=== PATIENT | male | born 1975 | race Caucasian/White ===

== ENCOUNTER 2019-04-05 17:45 | Emergency (ER) | payer SELFPAY ==
[~2019-04-05] VITALS: Ht 167.6 cm; Wt 80.5 kg
[2019-04-05 17:48] VITALS: BP 139/80; PULSE 86; RESP 18; Ht 167.6 cm; Wt 80.5 kg
--- NOTE | 2019-04-05 19:02 | ERD ---
ER Documentation Chief Complaint Chief Complaint back pain x 2 days HPI 43-year-old male, presents the emergency department, complaining of 2 days with painless lump in the perianal area. The patient denies rectal bleeding, no abdominal pain, no history of previous episodes. The patient denies history of constipation but reports prolonged time sitting in the toilet. ROS All systems reviewed and are negative except as per history of present illness. Medications Home Meds Active Scripts Ibuprofen* (Motrin*) 400 Mg Tab, 400 MG PO TID PRN for PAIN AND OR ELEVATED TEMP for 7 Days, #20 TAB Prov:SRIDEVI CARDENAS MD 04/05/19 Triamcinolone Acetonide (Triamcinolone Acetonide) 0.5% - 15 Gm Oint..gm., 1 APPLIC TOP BID for 7 Days, #1 TUB Prov:SRIDEVI CARDENAS MD 04/05/19 Allergies Allergies: Coded Allergies: No Known Allergy (Unverified , 04/05/19) PMhx/Soc Medical and Surgical Hx: pt denies Medical Hx Hx Alcohol Use: No Hx Substance Use: No Hx Tobacco Use: No Smoking Status: Never smoker FmHx Family History: No diabetes, No coronary disease Physical Exam Vitals Vital Signs Date Temp Pulse Resp B/P (MAP) Pulse Ox O2 O2 Flow FiO2 Time Delivery Rate 04/05/19 98.5 86 18 139/80 97 17:48 (99) Physical Exam Const: No acute distress Head: Atraumatic Eyes: Normal Conjunctiva ENT: Normal External Ears, Nose and Mouth. Neck: Full range of motion. No meningismus. Resp: Clear to auscultation bilaterally Cardio: Regular rate and rhythm, no murmurs Abd: Soft, non tender, non distended. Normal bowel sounds Rectal: 1 cm external hemorrhoid without evidence of thrombosis. Normal sphincter. Skin: No petechiae or rashes Back: No midline or flank tenderness Ext: No cyanosis, or edema Neur: Awake and alert Psych: Normal Mood and Affect Procedures/MDM Differential diagnosis include but not limited to: Internal hemorrhoid, external hemorrhoid, skin tag, Perianal abscess, perirectal abscess, pilonidal cyst, fecal impaction. Low suspicion for acute abdomen. Physical examination and clinical presentation consistent most likely with uncomplicated external hemorrhoid. During the ED course the patient remained stable, no new complaints. Treatment options, results and clinical impression discussed with the patient who agrees with management. The patient is stable to be treated outpatient and will be discharged home, some side effects of prescribed medications were reviewed. The patient was instructed to follow up with the primary care provider in the next 48h. If symptoms persist, worsen or new symptoms develop, then patient should return to the ED immediately. Instructions explained and given directly by me to the patient with acknowledgment and demonstrated understanding. Disclaimer: Inadvertent spelling and grammatical errors are likely due to EHR/dictation software use and do not reflect on the overall quality of patient care. Also, please note that the electronic time recorded on this note does not necessarily reflect the actual time of the patient encounter. Departure Diagnosis: Primary Impression: External hemorrhoids without complication Condition: Stable Patient Instructions: Hemorrhoids Additional Instructions: Muchas patience por [facility] para [place] servicio. Esperamos que en [place] visita a la rosemary de emergencia [place] problema medico haya sido solucionado y que se sienta mucho mejor. Para estar seguros que [place] mejoria sigue en proceso, le pedimos el favor de hacer cory peace de seguimiento medico con [place] doctor primario en los proximos 2-4 rose. Lleve con usted estos documentos y las medicinas recetadas. Si liliya sintomas empeoran, NO SE ESPERE, por favor regrese a rosemary de emergencia INMEDIATAMENTE. En giuseppe que usted no tenga un mdico de atencin primaria: Llame al mdico o clnica comunitaria de referencia que aparece abajo cinda las horas de consultorio para hacer cory peace para que le vean. CLINICAS: [facility] [phone] [address] [facility] 159 [phone] [facility] [phone] [place] [id number] [phone] [facility] 232 [phone] [address] [facility] [phone] SRIDEVI GIBBONS MD April 05, 2019 19:02
[2019-04-05] MEDS ORDERED: IBUP-1561 PO (19:08)
[2019-04-05] MEDS ORDERED: TRIA15OI9 TOP (19:08)
== END 2019-04-05 20:29 | disposition home or self-care (01) ==
LOC: FTE 17:45
DX: K64.4 Residual hemorrhoidal skin tags (principal)
CPT/HCPCS: 99284

== ENCOUNTER 2019-04-07 22:18 | Emergency (ER) | payer SELFPAY ==
[~2019-04-07] VITALS: Wt 80.6 kg
[~2019-04-07 22:18] MED LIST: IBUP-1561 PO; TRIA15OI9 TOP
[2019-04-07 22:24] VITALS: BP 138/94; PULSE 77; RESP 18
[2019-04-08] MEDS ORDERED: DOCU-144 PO (01:52)
[2019-04-08] MEDS ORDERED: HYDR25SU23 PR (01:56)
--- NOTE | 2019-04-08 02:09 | ERD ---
ER Documentation Chief Complaint Chief Complaint blood in stool/rectal bleeding x1. hx of hemorrhoid HPI 43-year-old male with no reported past medical history presents with complaint of rectal bleeding. Patient seen in this ED last Wednesday and diagnosed with possible external hemorrhoids. Given Rx for triamcinolone. Now returns as he had a single episode of bright red blood per rectum around 10 PM. No bleeding since that episode. He otherwise is without complaint. Denying chest pain, dizziness, lightheadedness, or any other concerning symptoms. States he does work that often requires heavy straining and heavy lifting. ROS All systems reviewed and are negative except as per history of present illness. Medications Home Meds Active Scripts Hydrocortisone Acetate (Anusol-Hc) 25 Mg Supp.rect, 1 SUPP IN BID PRN for HEMORROID PAIN/ITCHING, #12 SUPP.RECT Prov:GERSON LEBRON PA-C 04/08/19 Docusate Sodium* (Colace*) 100 Mg Capsule, 100 MG PO TID, #30 CAP Prov:GERSON LEBRON PA-C 04/08/19 Ibuprofen* (Motrin*) 400 Mg Tab, 400 MG PO TID PRN for PAIN AND OR ELEVATED TEMP for 7 Days, #20 TAB Prov:SRIDEVI CARDENAS MD 04/05/19 Triamcinolone Acetonide (Triamcinolone Acetonide) 0.5% - 15 Gm Oint..gm., 1 A PPLIC TOP BID for 7 Days, #1 TUB Prov:SRIDEVI CARDENAS MD 04/05/19 Allergies Allergies: Coded Allergies: No Known Allergy (Unverified , 04/05/19) PMhx/Soc Hx Miscellaneous Medical Probl: Yes (hemorrhoids) Hx Alcohol Use: No Hx Substance Use: No Hx Tobacco Use: No Smoking Status: Never smoker FmHx Family History: No diabetes, No coronary disease, No other Physical Exam Vitals Vital Signs Date Temp Pulse Resp B/P (MAP) Pulse Ox O2 O2 Flow FiO2 Time Delivery Rate 04/07/19 97.6 77 18 138/94 96 22:24 (109) Physical Exam I have reviewed the triage vital signs. Const: Well nourished, well developed, appears stated age Eyes: PERRL, no conjunctival injection HENT: NCAT, Neck supple without meningismus CV: RRR, Warm, well-perfused extremities RESP: CTAB, Unlabored respiratory effort GI: soft, non-tender, non-distended, no masses, external anal right-sided nonbleeding small lesion MSK: No gross deformities appreciated Skin: Warm, dry. No rashes Neuro: grossly non focal Psych: Appropriate mood and affect. Procedures/MDM 43-year-old male presents with single episode rectal bleeding. Patient hemodynamically stable. I have low suspicion for acute process warranting further emergent care or work-up. Symptoms likely secondary to external hemorrhoids. We will discharge with Anusol, recommend sitz bath, Colace school softer, establish care with clinic, he may require referral to specialist if symptoms do not improve, strict return precautions explained in detail to patient. DISPOSITION PLAN: We discussed follow up with the patient's primary care doctor within 24 to 48 hours. Patient counseled regarding my diagnostic impression and care plan. Prior to discharge all questions answered. Pt agrees with treatment plan and understands strict return precautions. Precautionary instructions provided including instructions to return to the ER if not improving or for any worsening or changing symptoms or concerns. Disclaimer: Inadvertent spelling and grammatical errors are likely due to EHR/dictation software use and do not reflect on the overall quality of patient care. Also, please note that the electronic time recorded on this note does not necessarily reflect the actual time of the patient encounter. Departure Diagnosis: Primary Impression: Hemorrhoids Condition: Stable Patient Instructions: Hemorrhoids Referrals: [facility] YOU HAVE RECEIVED A MEDICAL SCREENING EXAM AND THE RESULTS INDICATE THAT YOU DO NOT HAVE A CONDITION THAT REQUIRES URGENT TREATMENT IN THE EMERGENCY DEPARTMENT. FURTHER EVALUATION AND TREATMENT OF YOUR CONDITION CAN WAIT UNTIL YOU ARE SEEN IN YOUR DOCTORS OFFICE WITHIN THE NEXT 1-2 DAYS. IT IS YOUR RESPONSIBILITY TO MAKE AN APPOINTMENT FOR FOLOW-UP CARE. IF YOU HAVE A PRIMARY DOCTOR --you should call your primary doctor and schedule an appointment IF YOU DO NOT HAVE A PRIMARY DOCTOR YOU CAN CALL OUR PHYSICIAN REFERRAL HOTLINE AT IF YOU CAN NOT AFFORD TO SEE A PHYSICIAN YOU CAN CHOSE FROM THE FOLLOWING [facility] [address] [facility]. [facility] [address] [address] [facility]. [facility] [address] [facility]. [facility] [address] [facility]. [facility]. [address] Additional Instructions: Call your primary care doctor TOMORROW for an appointment during the next 2-3 days.See the doctor sooner or return here if your condition worsens before your appointment time. Renae cory peace con las clnicas enumeradas para la atencin continua. Use ablandador de heces, incluya ms fibra en [place] dieta y tome lópez agua. Evite la actividad vigorosa o levantar objetos pesados ??hasta que Puede obtener un "kai de asiento" en cualquier farmacia. selo para ayudar con liliya sntomas. GERSON LEBRON PA-C Apr 08, 2019 02:09
== END 2019-04-08 03:02 | disposition home or self-care (01) ==
LOC: FTE 22:18
DX: K64.9 Unspecified hemorrhoids (principal)
CPT/HCPCS: 99282